=== PATIENT | female | born 1995 | race Caucasian/White ===

== ENCOUNTER 2019-01-07 00:36 | Inpatient (IN) | payer BC ==
[2019-01-07 01:01] VITALS: BMI 35.9
[2019-01-07] MEDS ORDERED: hydrALAZINE 20 MG/ML VIAL SLOW IVP PRN ×2 (01:41→23:34)
[2019-01-07] MEDS ORDERED: Promethazine HCl 25 MG/ML VIAL IM PRN ×3 (01:41→21:11)
[2019-01-07] MEDS ORDERED: Ondansetron PF 4 MG/2 ML Vial IVP PRN ×2 (01:41→14:18)
[2019-01-07] MEDS ORDERED: NS / Oxytocin 40 units/1000ml 1,000 ML IV PRN (01:41)
[2019-01-07] MEDS ORDERED: Lidocaine 1% (PF) 30 ML VIAL SC PRN (01:41)
[2019-01-07] MEDS ORDERED: Lactated Ringer's 1,000 ML IV SCH (01:45)
[2019-01-07 02:20] LABS: Hemoglobin 11.1 g/dL (12.0-16.0); Mean Corpuscular HGB CONC 33.8 g/dL (32.0-36.0); Mean Corpuscular Hemoglobin 28.7 pg (27.0-31.0); Mean Platelet Volume 8.4 fL (7.4-10.4); Platelet Count 210 thou/uL (130-400); RBC Distribution Width 13.1 % (11.5-14.5); Red Blood Cell (RBC) Count 3.88 mill/uL (4.20-5.40); White Blood Cell (WBC) Count 9.7 thou/uL (4.8-10.8)
[2019-01-07 02:58] LABS: HBSAg Index 0.25 S/CO (0-0.99); Hep B Surf Ag Non-Reactive S/CO (NonReactive)
[2019-01-07 04:44] LABS: Syphilis Antibody Nonreactive (Nonreactive); Syphilis Antibody Index 0.03 S/CO (<1.00 Non-Reactive)
[2019-01-07] MEDS: Lactated Ringer's 1,000 ML IV SCH ×4 (06:59→16:41)
[2019-01-07] MEDS ORDERED: NS w/ Oxytocin 10 units 500 ML ONE (10:49)
--- NOTE | 2019-01-07 10:52 | PDOC.EVN ---
Event Note - Event Note Event Note: I came to the bedside to discuss the options for care. Pt presented with SROM at 0050 this AM. Currently only with sporadic and painless contractions. FHT category I. We discussed at length the risks of pitocin v. waiting for spontaneous labor and the risk of infection with continued waiting. Reviewed her op note from her first C/S and discussed with Dr. Zelaya as well. Indication last time was cephalopelvic disproportion but baby was OP and bigger than this one. EFW last week was [id number] on U/S. I advised that given the long time since her rupture and the increasing risk of infection I would recommend IUPC and careful pitocin augmentation. After much discussion she and her are agreeable to that plan. IUPC placed without difficulty. SVE /-2.
[2019-01-07] MEDS ORDERED: Fentanyl 4 mcg/Bup 0.1% Cadd 100 ML ONE (13:33)
[2019-01-07] MEDS ORDERED: Ondansetron PF 4 MG/2 ML Vial ONE ×2 (13:51→20:44)
[2019-01-07] MEDS ORDERED: Ketorolac Tromethamine 30 MG/ML VIAL ONE ×2 (13:51→20:57)
[2019-01-07] MEDS ORDERED: Lidocaine 2% PF 5 ML VIAL ONE (13:51)
[2019-01-07] MEDS ORDERED: Lactated Ringer's 500 ML IV PRN (14:18)
[2019-01-07] MEDS ORDERED: Naloxone HCl 0.4 mg/ml Vial IVP PRN ×4 (14:18→21:11)
[2019-01-07] MEDS ORDERED: Acetaminophen 325 MG TAB PO PRN ×2 (14:18→23:34)
[2019-01-07] MEDS ORDERED: ePHEDrine/0.9% NaCl/PF SYRINGE 50 mg/10 ml SLOW IVP PRN (14:18)
[2019-01-07] MEDS ORDERED: diphenhydrAMINE 50 MG/ML VIAL IVP PRN ×2 (14:18→21:11)
[2019-01-07] MEDS ORDERED: Fentanyl 4 mcg/Bupivacaine 0.1% Cassette 100 ML EPIDURAL SCH (14:30)
[2019-01-07] MEDS ORDERED: Communication Order-Pharmacy FS SCH ×2 (14:30→21:15)
[2019-01-07] MEDS ORDERED: Bicitra 30 ML UDCUP ONE (20:32)
--- NOTE | 2019-01-07 20:39 | PDOC.EVN ---
Event Note - Event Note Event Note: Patient has been having recurrent deep variable decelerations off and on all day. Resolve with position changes but now more persistent, every contraction, as low as 60-70. Resolve quickly with moderate variability between contractions. SVE 6/-2. Very little descent - remains above the pelvis. Discussed with the patient and Dr. cordero and we all agree on repeat C/S at this time. Anesthesia notified. Proceed with repeat C/S.
[2019-01-07] MEDS ORDERED: Lidocaine 2% 10 ML INJ ONE ×2 (20:44→21:03)
[2019-01-07] MEDS ORDERED: CEFAZOLIN 2 GM in Premix Bag 1 BAG IVPB SCH (20:45)
[2019-01-07] MEDS ORDERED: Azithromycin 500 MG in Sodium Chloride 0.9% 250 ML 250 ML IVPB SCH (20:45)
[2019-01-07] MEDS ORDERED: Clindamycin/D5W 900 mg/50 ml Premix Bag ONE (20:46)
[2019-01-07] MEDS ORDERED: MORPHINE 5 MG/10 ML PF VIAL ONE (20:57)
[2019-01-07] MEDS ORDERED: Oxytocin 10 UNITS/ML VIAL ONE ×2 (20:57→21:37)
[2019-01-07] MEDS ORDERED: Clindamycin/D5W 900 MG in Premix Bag 1 BAG IVPB SCH (21:00)
[2019-01-07] MEDS ORDERED: Bupivacaine PF 0.5% 30 ML VIAL ONE (21:03)
[2019-01-07] MEDS ORDERED: Promethazine HCl 25 MG SUPP PR PRN (21:11)
[2019-01-07] MEDS ORDERED: Meperidine HCl/PF 25 MG/ML VIAL SLOW IVP PRN (21:11)
[2019-01-07] MEDS ORDERED: Ketorolac Tromethamine 30 MG/ML VIAL IVP PRN (21:11)
[2019-01-07] MEDS ORDERED: L&D-Morphine 4 MG/ML VIAL SLOW IVP PRN (21:11)
[2019-01-07] MEDS ORDERED: Naloxone HCl 0.4 mg/ml Vial IV PRN (21:11)
[2019-01-07] MEDS ORDERED: HYDROmorphone 2 MG/ML VIAL SLOW IVP PRN (21:11)
[2019-01-07] MEDS ORDERED: Ketorolac Tromethamine 30 MG/ML VIAL IVP SCH (21:15)
--- NOTE | 2019-01-07 23:07 | OP ---
DATE OF PROCEDURE: 01/07/2019 PROCEDURE PERFORMED: Repeat low segment transverse section via Pfannenstiel incision. ONCOLOGY ACCOUNT SPECIALIST SURGEON: Dixie Campbell MD ANESTHESIA: Epidural. ESTIMATED BLOOD LOSS: 600 mL. QUANTITATIVE BLOOD LOSS: Pending. COMPLICATIONS: None. PROPHYLAXIS: 1. Clindamycin 900 mg IV x1. 2. Azithromycin 500 mg x1. FINDINGS: 1. Viable female infant, found in the direct occiput posterior position with weight 7 pounds 15 ounces. Apgars 9 and 9. 2. Multiple wraps of cord around the neck and body. 3. Normal uterus, tubes, and ovaries bilaterally. BRIEF PATIENT DESCRIPTION: Ms. Hoover is a 23-year-old white G2, P1 with a previous history of section for failure to progress. She had been admitted by Dr. Campbell with rupture of membranes about midnight. Pitocin was started earlier in the day. She progressed slowly up to approximately 5-6 cm and then made no further progress. She began to have persistent deep variables, and decision was made to proceed with delivery. The risks, benefits, and alternatives to the procedure were discussed with her in detail and she wished to proceed. Consent was on the chart. TECHNIQUE IN DETAIL: After good epidural anesthesia was achieved, the patient was prepped and draped in usual sterile fashion in the supine position with leftward tilt. A transverse incision was made two fingerbreadths above the symphysis pubis through a pre-existing abdominal scar. The abdomen was entered in layers. The uterus was identified, and a bladder flap was created in the perineum. A transverse incision was made across the lower uterine segment and was extended bluntly with the fingers. The fetus was found in the occiput posterior presentation and head was delivered. The remainder of the baby was then delivered by fundal pressure. There were multiple wraps of cord around the neck and torso. The cord was clamped and cut, and the baby was taken to the waiting team. Cord blood was then obtained. The placenta was then manually removed. The inside of the uterus was curetted with a dry lap to remove all remaining placental fragments. The uterine incision was closed using a running locking suture of Monocryl. Interrupted chromic suture was placed for complete hemostasis. The uterus was replaced in the abdominal cavity and the incision was again reviewed and was deemed hemostatic. The Aleksandar retractor was then removed and the peritoneum was closed using a 2-0 Monocryl suture. The rectus muscles were made dry and then the fascia was closed using 2 sutures of PDS, brought laterally to the midline. The subcutaneous tissue was thoroughly irrigated and made dry using Bovie coagulation technique. The subcutaneous tissue was reapproximated using plain gut suture. The skin was closed with metal dilcia. Sponge, lap, and needle counts were correct. The patient tolerated the procedure well and was taken to recovery room in good condition. Job ID: [id number]
[2019-01-07] MEDS ORDERED: diphenhydrAMINE 25 MG CAP PO PRN (23:34)
[2019-01-07] MEDS ORDERED: Lanolin Ointment 7 GM TUBE TOP PRN (23:34)
[2019-01-07] MEDS ORDERED: Simethicone Chewable 80 MG TAB PO PRN (23:34)
[2019-01-07] MEDS ORDERED: Bisacodyl 10 MG SUPP PR PRN (23:34)
[2019-01-07] MEDS ORDERED: Docusate Calcium (SURFAK) 240 MG CAP PO SCH (23:45)
[2019-01-08] MEDS ORDERED: Ibuprofen 800 MG TAB PO SCH (01:00)
[2019-01-08] MEDS: Lactated Ringer's 1,000 ML IV SCH (01:20)
[2019-01-08 05:57] LABS: Hemoglobin 8.8 g/dL (12.0-16.0); Mean Platelet Volume 8.3 fL (7.4-10.4); Platelet Count 142 thou/uL (130-400); RBC Distribution Width 13.2 % (11.5-14.5); Red Blood Cell (RBC) Count 3.13 mill/uL (4.20-5.40); White Blood Cell (WBC) Count 11.5 thou/uL (4.8-10.8)
--- NOTE | 2019-01-08 07:29 | PDOC.EVN ---
Event Note - Event Note Event Note: Resting comfortably. No c/o. VSS AF Dressing dry and intact. A/P: Stable postop. Dc deras today. Advance diet. Ambulate.
[2019-01-08] MEDS: Docusate Calcium (SURFAK) 240 MG CAP PO SCH ×2 (11:22→21:39)
--- NOTE | 2019-01-08 11:32 | PDOC.PP ---
Post Progress Note Post Day #: 1 Subjective: Doing well, no complaints, not yet ambulating - will try this afternoon. PO intake tolerated: yes Flatus: yes Ambulation: yes Vital Signs (12 hours) Temp Pulse Resp BP Pulse Ox 01/08/19 07:45 98.5 F 84 16 110/57 L 97 01/08/19 03:05 98.2 F 89 18 112/61 01/08/19 01:16 98.8 F 74 18 106/55 L 96 01/07/19 23:58 98.9 F 74 18 106/55 L 96 Weight Weight 184 lb - Physical Examination General: NAD Cardiovascular: no m/r/g, RRR Respiratory: clear to auscultation bilaterally, non-labored breathing Abdominal: + bowel sounds, lochia, no distention, appropriately TTP Skin: CS incision dry & intact Neurological: no gross focal deficits Result Diagrams: 01/08/19 05:44 Additional Labs: Post Labs Blood Type O POSITIVE 01/07/19 02:30 Hep Bs Antigen Non-Reactive S/CO (NonReactive) 01/07/19 01:48 (1) S/P repeat low transverse Code(s): Z98.891 - HISTORY OF UTERINE SCAR FROM PREVIOUS SURGERY Status: Acute - Assessment/Plan Routine Post-op care Ambulate D/C Judge Shower and D/C wound dressing
[2019-01-08] MEDS: HYDROcodone/Acetaminophen 5/325 mg Tablet PO PRN ×2 (13:06→22:58)
[2019-01-08] MEDS: Ibuprofen 800 MG TAB PO SCH ×2 (14:59→21:39)
[2019-01-09] MEDS: Ibuprofen 800 MG TAB PO SCH ×3 (06:37→21:38)
[2019-01-09] MEDS: Docusate Calcium (SURFAK) 240 MG CAP PO SCH ×2 (07:40→21:38)
--- NOTE | 2019-01-09 07:53 | PDOC.PP ---
Post Progress Note Post Day #: 2 Subjective: Doing well. going better today. Pain controlled. PO intake tolerated: yes Flatus: yes Ambulation: yes Vital Signs (12 hours) Temp Pulse Resp BP Pulse Ox 01/09/19 00:15 98.9 F 94 18 105/57 L 01/08/19 19:55 98.3 F 98 18 105/58 L 97 Weight Weight 184 lb - Physical Examination General: NAD Cardiovascular: no m/r/g, RRR Respiratory: clear to auscultation bilaterally, non-labored breathing Abdominal: + bowel sounds, lochia, no distention, appropriately TTP Skin: CS incision dry & intact Neurological: no gross focal deficits Result Diagrams: 01/08/19 05:44 Additional Labs: Post Labs Blood Type O POSITIVE 01/07/19 02:30 Hep Bs Antigen Non-Reactive S/CO (NonReactive) 01/07/19 01:48 (1) S/P repeat low transverse Code(s): Z98.891 - HISTORY OF UTERINE SCAR FROM PREVIOUS SURGERY Status: Acute - Assessment/Plan Routine post-op care D/C tomorrow Will D/C dilcia prior to D/C from hospital F/U in 2 weeks after D/C
[2019-01-09] MEDS: HYDROcodone/Acetaminophen 5/325 mg Tablet PO PRN ×2 (10:59→20:49)
[2019-01-10] MEDS: HYDROcodone/Acetaminophen 5/325 mg Tablet PO PRN (00:57)
[2019-01-10] MEDS: Ibuprofen 800 MG TAB PO SCH (05:15)
--- NOTE | 2019-01-10 07:49 | PDOC.PP ---
Post Progress Note Post Day #: 3 Subjective: Doing well, well, pain controlled, showered again and feeling better PO intake tolerated: yes Flatus: yes Ambulation: yes Vital Signs (12 hours) Temp Pulse Resp BP Pulse Ox 01/10/19 00:30 98.5 F 84 18 112/66 01/09/19 20:32 98.3 F 99 20 113/57 L 96 Weight Weight 184 lb - Physical Examination General: NAD Cardiovascular: no m/r/g, RRR Respiratory: clear to auscultation bilaterally, non-labored breathing Abdominal: + bowel sounds, lochia, no distention, appropriately TTP Skin: CS incision dry & intact Neurological: no gross focal deficits Psychiatric: A&Ox3 Result Diagrams: 01/08/19 05:44 Additional Labs: Post Labs Blood Type O POSITIVE 01/07/19 02:30 Hep Bs Antigen Non-Reactive S/CO (NonReactive) 01/07/19 01:48 (1) S/P repeat low transverse Code(s): Z98.891 - HISTORY OF UTERINE SCAR FROM PREVIOUS SURGERY Status: Acute - Assessment/Plan Routine post-op care D/C dilcia D/C home F/u in 2 weeks
[2019-01-10 08:09] VITALS: BP 103/67; TEMP 98.1
[2019-01-10] MEDS: Docusate Calcium (SURFAK) 240 MG CAP PO SCH (09:34)
== END 2019-01-10 10:30 | disposition home or self-care (01) | DRG 788 ==
LOC: L&D/OP 00:36 → L&D 01:13 → 3SW 01-08
PROVIDERS: ADMIT Family Medicine; ATTEND Family Medicine
PROC: 10D00Z1 Extraction of Products of Conception, Low, Open Approach (ICD-10-PCS; principal; 2019-01-08)
PROC: 10H07YZ Insertion of Other Device into Products of Conception, Via Natural or Artificial Opening (ICD-10-PCS; 2019-01-08)
PROC: 4A1H7CZ Monitoring of Products of Conception, Cardiac Rate, Via Natural or Artificial Opening (ICD-10-PCS; 2019-01-08)
DX: O34.211 Maternal care for low transverse scar from previous cesarean delivery (principal); Z37.0 Single live birth; Z3A.39 39 weeks gestation of pregnancy; Z88.0 Allergy status to penicillin; Z88.2 Allergy status to sulfonamides
CPT/HCPCS: 36415; 51702; 76815; 85027; 86780; 86850; 86900; 86901; 87340; 99285; J0131; J0690; J1885; J2001; J2274; J2405; J2590; J3490; S0020

== ENCOUNTER 2020-08-23 02:24 | Inpatient (IN) | payer BC, OTHER ==
[2020-08-23 02:46] VITALS: BMI 34.5
[2020-08-23] MEDS ORDERED: Azithromycin 500 MG VIAL ONE (02:53)
[2020-08-23] MEDS ORDERED: Clindamycin/D5W 900 mg/50 ml Premix Bag ONE (02:54)
[2020-08-23] MEDS ORDERED: Ondansetron PF 4 MG/2 ML Vial IVP PRN ×3 (02:57→04:55)
[2020-08-23] MEDS ORDERED: Famotidine/PF 20 mg/2ml Vial SLOW IVP PRN (02:57)
[2020-08-23] MEDS ORDERED: Bicitra 30 ML UDCUP PO PRN (02:57)
[2020-08-23] MEDS ORDERED: hydrALAZINE 20 MG/ML VIAL SLOW IVP PRN ×2 (02:57→04:55)
[2020-08-23] MEDS ORDERED: Promethazine HCl 25 MG/ML VIAL IM PRN ×2 (02:57→04:21)
[2020-08-23] MEDS ORDERED: Lactated Ringer's 1,000 ML IV SCH (03:00)
[2020-08-23] MEDS ORDERED: Azithromycin 500 MG in Sodium Chloride 0.9% 250 ML 250 ML IVPB SCH (03:00)
[2020-08-23] MEDS ORDERED: Clindamycin/D5W 900 MG in Premix Bag 1 BAG IVPB SCH (03:00)
--- NOTE | 2020-08-23 03:11 | PDOC.FPROB ---
FMR OB H&P: HPI - History of Present Illness Chief Complaint: ctx Indentification: 25yo @ 40.5wk History of Present Illness: 25yo @ 40.5wk with h/o rLTCS x2 presents from birthing center in [place] for ctx after SROM. Patient initially presented for SROM and TOLAC at 1900 on 08/22/20, was 1cm and having significant pain with contractions, decided to transfer to [place] for rLTCS. Endorses ctx q 5 min, painful. Denies vaginal bleeding. Endorses movement. Denies MANRIQUEZ, vision changes, CP, SOB, n/v, fever/chills. Primary Care Physician: [facility] in [place] FMR OB H&P: Current - Care : 3 Para: 2001 Gestational age: 40.5 Due date: 08/18/20 Dating Criteria: LMP - OB Labs Blood type: O RH: positive Antibody Screen: negative HIV: negative RPR: negative HepBsAg: negative Rubella: immune GBS: positive H&H: 12.6 - First Trimester Ultrasound First trimester: posterior placenta FMR OB H&P: History - Past Medical History PMH: Denies - OB History OB History: prior LTCS x2, no complications. - BEAD MAKER History BEAD MAKER History: None - Surgical History Sx History: prior c/s x2, ear tubes - Social History Social History: . Denies EtOH, Tob, Illicits - Family History Family History: Parents with HTN FMR OB H&P: Medications - Current Home Medications: Medication Instructions Recorded Confirmed Type Vit,Calc76/Iron/Folic 1 tablet PO DAILY-AC 01/07/19 01/07/19 History [Pnv 29-1 Tablet] Allergies/Adverse Reactions: Allergies Allergy/AdvReac Type Severity Reaction Status Date / Time Penicillins Allergy Rash Verified 08/23/20 02:47 Sulfa (Sulfonamide Allergy Nausea Verified 08/23/20 02:47 Antibiotics) FMR OB H&P: ROS - Review of Systems General: denies: fever/chills, weight/appetite/sleep changes, night sweats, fatigue Eyes: denies: vision changes, double vision ENT: denies: nasal congestion, rhinorrhea Cardiovascular: denies: chest pain, palpitation, edema Respiratory: denies: cough, congestion, shortness of breath Gastrointestinal: denies: abdominal pain, nausea, vomiting Genitourinary (Female): reports: contractions. denies: dysuria, vaginal discharge, vaginal pain Neurologic: denies: numbness Integumentary: denies: rash Hematologic/Lymphatic: denies: prolonged or excessive bleeding FMR OB H&P: Vital Signs - Maternal Vital signs: T 98.5, BP 139/84, RR 16, HR 100 - Heart Tones Baseline: 130 Variability: moderate Acceleration: present Deceleration: absent Category: category 1 [place] contractions every: 5-6min FMR OB H&P: Physical Exam - Physical Exam General: NAD, awake, alert and oriented, other (uncomfortable with ctx) HEENT: EOMI, MMM, conjunctiva clear Neck: supple, trachea midline Heart: RRR, normal S1/S2, no murmurs/rubs/gallops, no edema General: CTAB, no respiratory distress, good air movement, no rales/rhonchi, no wheezing Abdomen: soft, gravid, non-tender, bowel sound present Musculoskeletal: FROM in all four extremities Neurological: no focal deficit Skin: no rash Psychiatric: intact recent and remote memory, good judgement and insight, normal mood and affect - Pelvic Exam SVE: FMR OB H&P: A/P - Problem List (1) Rupture of membranes Current Visit: Yes Status: Acute Code(s): [id number] - (2) Active labor at term Current Visit: Yes Status: Acute Code(s): [id number] - (3) S/P repeat low transverse Current Visit: No Status: Acute Code(s): Z98.891 - HISTORY OF UTERINE SCAR FROM PREVIOUS SURGERY Disposition: 25yo @ 40.5wk with h/o rLTCS x2 [facility] after SROM. #Term, SIUP, labor, prior c/s x2 - SROM at approximately 1900 - Initially presented to [facility] for T[facility]AC after SROM, then requested transfer to [place] for rLTCS - Cat 1 FHT - at presentation - GBS positive with PNC allergy - Given Clinda and Azithro - Type and cross 2u - Anesthesia consulted - R/B/A explained and patient consents to proceed with rLTCS - Posterior placenta PCP: [facility] in [place] VTE: SCDs IVF: LR @ 125cc/hr Diet: NPO Dispo: Admit for rLTCS in setting of prior c/s x2 with SROM and in labor. Discussion: Date/Time: 08/23/206 This H&P was discussed with Dr. Valdez who agrees with the above documentation and plan. OBGYN: Patient seen by me at bedside. Exasm was 5cm per RN. patient desires repeat CS VICKEY. Anesthesia aware and we are getting OR ready now.
[2020-08-23 03:12] LABS: Hemoglobin 9.8 g/dL (12.0-16.0); Mean Corpuscular HGB CONC 33.4 g/dL (32.0-36.0); Mean Corpuscular Hemoglobin 25.9 pg (27.0-31.0); Mean Corpuscular Volume 77.6 fL (78.0-98.0); Mean Platelet Volume 8.7 fL (7.4-10.4); Platelet Count 181 thou/uL (130-400); Red Blood Cell (RBC) Count 3.78 mill/uL (4.20-5.40); White Blood Cell (WBC) Count 15.9 thou/uL (4.8-10.8)
[2020-08-23] MEDS ORDERED: Butorphanol Tartrate 1 MG/ML VIAL SLOW IVP SCH (03:15)
[2020-08-23] MEDS ORDERED: Butorphanol Tartrate 1 MG/ML VIAL ONE (03:15)
[2020-08-23] MEDS ORDERED: Morphine PF 10 MG/10 ML VIAL ONE (03:32)
[2020-08-23] MEDS ORDERED: Oxytocin 10 UNITS/ML VIAL ONE (03:32)
[2020-08-23] MEDS ORDERED: Ondansetron PF 4 MG/2 ML Vial ONE (03:32)
[2020-08-23] MEDS ORDERED: Fentanyl 100 MCG/2 ML VIAL ONE (03:32)
[2020-08-23] MEDS ORDERED: PHENYLEPHRINE-NS 100 MCG/ML 10 ML SYRINGE ONE ×2 (03:32→04:33)
[2020-08-23] MEDS ORDERED: Ketorolac Tromethamine 30 MG/ML VIAL ONE (03:32)
[2020-08-23] MEDS ORDERED: Dexamethasone 4 mg/ml Vial ONE (03:32)
[2020-08-23] MEDS ORDERED: Carboprost 250 MCG/ML AMP ONE (03:52)
[2020-08-23 03:53] LABS: Hep B Surf Ag Non-Reactive S/CO (NonReactive)
--- NOTE | 2020-08-23 04:01 | HP ---
TIME: Now 0305. LOCATION: Labor and Delivery. CHIEF COMPLAINT: Patient transferred here from [place] [facility] with a history of previous C-sections x2 with labor. HISTORY OF PRESENT ILLNESS: This is a 25-year-old, G3, P2, who is at 40 weeks and 5 days, who arrived here from [place] after leaving her care with her roadway designer. She was originally with the roadway designer for labor, but decided to come here as she refused any further checks there. She has a history of a previous , which was here at [facility]. That was uncomplicated. REVIEW OF SYSTEMS: GENERAL: No sick contacts. No fever. No chills. PULMONARY: No shortness of breath. CARDIOVASCULAR: No chest pain. NEUROLOGICAL: No headache or visual changes. EXTREMITIES: No unusual calf pain or leg swelling. PAST MEDICAL HISTORY: Otherwise negative. MEDICATIONS: vitamins. PAST SURGICAL HISTORY: Includes a x2. ALLERGIES: PENICILLIN. OB HISTORY: She is a G3, P2 with 2 previous C-sections, now at 40 weeks and 5 days. SOCIAL HISTORY: Negative for alcohol, tobacco, and drug use. PHYSICAL EXAMINATION: VITAL SIGNS: Stable. She is afebrile. Vital signs are 139/84, pulse of 100, respirations are 18, temperature is 98.5. GENERAL: She is in no acute distress, but apparently she is having contraction discomfort. ABDOMEN: Gravid and size consistent with dates. Cervical exam is pending as she just arrived. (We do not know what she was at the other location because she was refusing exams). Monitoring: heart tones were reviewed by me and I found the heart tones was at baseline heart rate of around 130 to 140s. There is moderate variability. There are some variable decelerations and she is alexandrea about every 3 minutes. ASSESSMENT: This is a G3, P2, previous x2 at 40 weeks and 5 days, who was in labor with a [place] roadway designer and arrived here. She declined exams over there, so we are not sure what she is here. She arrived here for further management and repeat . PLAN: 1. Admission to Labor and Delivery. 2. Type and cross for 2 units. 3. I am not sure what her exam is, but this is being evaluated now. 4. Although the ACOG does allow previous x2 history to have a TOLAC in certain situations, I am not comfortable with the TOLAC and recommend for her. 5. Informed consent being done as we speak. 6. Ethan Villar MD, who is our resident, was first to evaluate the patient and is assisting me while I do this dictation. 7. I will explain to her the risks and benefits of repeat versus TOLAC at this time. Job ID: [id number] MTDD
[2020-08-23] MEDS ORDERED: Meperidine HCl/PF 25 MG/ML VIAL SLOW IVP PRN (04:21)
[2020-08-23] MEDS ORDERED: Naloxone HCl 0.4 mg/ml Vial IV PRN (04:21)
[2020-08-23] MEDS ORDERED: Naloxone HCl 0.4 mg/ml Vial IVP PRN ×2 (04:21)
[2020-08-23] MEDS ORDERED: L&D-Morphine 4 MG/ML VIAL SLOW IVP PRN (04:21)
[2020-08-23] MEDS ORDERED: HYDROmorphone 2 MG/ML VIAL SLOW IVP PRN (04:21)
[2020-08-23] MEDS ORDERED: diphenhydrAMINE 50 MG/ML VIAL IVP PRN (04:21)
[2020-08-23] MEDS ORDERED: Promethazine HCl 25 MG SUPP PR PRN (04:21)
[2020-08-23] MEDS ORDERED: Ondansetron HCl/PF 4 MG/2 ML Vial IVP PRN (04:21)
[2020-08-23 04:28] LABS: Actual Bicarbonate (HCO3v) 24 mEq/L (22-28); Base Excess -3.7 mEq/L (-2.0 to +3.0); pH (Cord, venous) 7.28 (7.32-7.43)
[2020-08-23] MEDS ORDERED: Communication Order-Pharmacy FS SCH (04:30)
--- NOTE | 2020-08-23 04:42 | PDOC.BPN ---
- Brief Progress Note OP Note Brief Details: Repeat CS (LTCS via pfannestiel)...no issues identified. EBL less than 500ml (QBL pending). Baby vigorous male with apgars 8/9. Dictated.
[2020-08-23] MEDS ORDERED: diphenhydrAMINE 25 MG CAP PO PRN (04:55)
[2020-08-23] MEDS ORDERED: Lanolin Ointment 7 GM TUBE TOP PRN (04:55)
[2020-08-23] MEDS ORDERED: Acetaminophen 325 MG TAB PO PRN (04:55)
--- NOTE | 2020-08-23 05:03 | OP ---
DATE OF PROCEDURE: 08/23/2020 LOCATION: Labor and Delivery. PREOPERATIVE DIAGNOSES: 1. Prior x2. 2. 40 weeks and 5 days. 3. Patient was transferred from [place] from a researcher provider. 4. 5 cm dilation. 5. Desires repeat section. POSTOPERATIVE DIAGNOSES: 1. Prior x2. 2. 40 weeks and 5 days. 3. Patient was transferred from [place] from a researcher provider. 4. 5 cm dilation. 5. Desires repeat section. 6. Status post repeat low transverse . PROCEDURE: Repeat low transverse section via Pfannenstiel skin incision. SHORE MAN: Ethan Villar. ANESTHESIA: Spinal anesthetic block. ANTIBIOTICS: Ancef and clindamycin. ALLERGIES: STATED ALLERGY TO PENICILLIN. FINDINGS: 1. There is a male in cephalic presentation. 2. Vigorous . 3. No complications with delivery. 4. Apgars 8 and 9. 5. Three-vessel cord. 6. Hemostasis postprocedure. 7. NICU team present for delivery. 8. EBL is at max 500 mL. 9. Urine output is clear urine by Judge about 300 mL by visual inspection, but this is not formal. 10. IV fluids about 1500 mL crystalloid. 11. Complications are none. 12. Counts are correct. 13. Laboratory specimen sent is an umbilical arterial gas due to the 40 weeks and 5 days and TOLAC history. INDICATIONS FOR : This patient was a transfer from [place], who decided for a repeat and drove here from [place] after being with the researcher for the initial part of labor. She was 5 cm when she arrived. We proceeded to her quickly after her arrival. PROCEDURE NARRATIVE: After proper informed consent was explained to the patient, she was taken to the Labor and Delivery operating room, where she was prepped and draped in the usual sterile fashion. A spinal anesthetic block was tested in the usual protocol. A low transverse skin incision was made in the area of the old scar. There was an old scar necessary for removal. Bovie cautery on cut mode was used to dissect the subcutaneous tissue down to the level of the fascia. Fascia was identified, cleaned off any overlying fat, and entered with Starks scissors in a transverse fashion. Care was taken to avoid underlying structures. Underlying peritoneum was then dissected free and the peritoneal cavity was entered by blunt dissection. The rectus muscles were already sufficiently from the midline. After confirming absence of severe adhesions, an Aleksandar O retractor was placed into the wound for retraction. A low transverse hysterotomy was then performed with a scalpel without complication. The baby's head was delivered. Shoulders and body were then delivered without complication. Baby was vigorous. Cord was doubly clamped, transected, and then the placenta was gently massaged out of the uterine cavity and it was intact. The uterus was then repaired in situ. #1 Monocryl was used in a two-layer closure to close the hysterotomy. As soon as the baby was delivered and the hysterotomy was being closed, Hemabate 250 mcg were given IM x1, just due to her initial low hematocrit value of 9.8. Copious irrigation was then performed and after confirming that all counts were correct, the rectus muscles were reapproximated in the midline using a loose 2-0 chromic running nonlocking closure. Fascia was closed with 0 PDS x2 in the usual running nonlocking fashion. Subcutaneous tissue was copiously irrigated and then the skin was closed with 3-0 Monocryl in the usual subcuticular stitch and Dermabond liquid skin adhesive was placed over the incision. No complications were noted. She will go to recovery for routine /postop care. Job ID: [id number]
[2020-08-23 05:05] LABS: Syphilis Antibody Nonreactive (Nonreactive); Syphilis Antibody Index 0.03 S/CO (<1.00 Non-Reactive)
--- NOTE | 2020-08-23 05:05 | PDOC.BPN ---
- Brief Progress Note Baby note: Very superficial scalpel eric on upper left baby shoulder noted but not requiring any repair. I discussed this with the patient at bedside and Dr Villar with me.
[2020-08-23] MEDS ORDERED: Meperidine HCl/PF 25 MG/ML VIAL ONE (06:45)
[2020-08-23] MEDS ORDERED: FLU VACC QS2020-21(6MOS UP)/PF 60 MCG/0.5 ML SYRINGE IM ONE (09:00)
[2020-08-23] MEDS ORDERED: Adacel (T-DAP) 0.5 ML SYRINGE IM ONE (09:00)
[2020-08-23] MEDS: Ferrous Sulfate 325 MG TAB PO SCH (09:20)
[2020-08-23] MEDS: Prenatal Vitamin 1 TAB PO SCH (09:20)
[2020-08-23] MEDS: Ketorolac Tromethamine 30 MG/ML VIAL IVP SCH ×3 (09:48→22:20)
[2020-08-23] MEDS ORDERED: Morphine 2 MG/ML VIAL SLOW IVP PRN (12:41)
[2020-08-23] MEDS ORDERED: HYDROcodone/Acetaminophen 5/325 mg Tablet PO PRN (16:30)
[2020-08-23] MEDS: HYDROcodone/Acetaminophen 5/325 mg Tablet PO PRN (18:36)
--- NOTE | 2020-08-24 04:00 | PDOC.PP ---
Post Progress Note Post Day #: 1 Subjective: Feeling well. Pain well controlled. Urinating well and walking. PO intake tolerated: yes Flatus: yes Ambulation: yes Vital Signs (12 hours) Temp Pulse Resp BP Pulse Ox 08/23/20 23:50 97.6 F 88 17 131/60 08/23/20 20:35 98.4 F 83 15 109/53 L 08/23/20 17:30 98.2 F 78 18 105/52 L 95 Weight Weight 83.007 kg - Physical Examination General: NAD Cardiovascular: no m/r/g, RRR Respiratory: clear to auscultation bilaterally, non-labored breathing Abdominal: lochia, no distention, appropriately TTP Fundus firm & at: level of umbilicus Skin: CS incision dry & intact, no rash Neurological: no gross focal deficits Psychiatric: A&Ox3, normal affect Result Diagrams: 08/23/20 03:07 Additional Labs: Post Labs Hep Bs Antigen Non-Reactive S/CO (NonReactive) 08/23/20 03:07 Blood Type O POSITIVE 08/23/20 03:07 - Assessment/Plan 25 yo G3 now [id number] delivered at 40.5 wga POD#1 s/p RLTCS - postop hemoglobin pending - hx of iron deficiency anemia, give iron as indicated - meeting milestones Outpatient follow up: pt has PCP in [place]. She will call tomorrow in AM and see if PCP comfortable with mgmt. Otherwise, may see [facility] for care at 2 and 6 weeks . Dispo: monitor today. inpatient, community engagement coordinatorMaryan Acevedo MD PGY2
[2020-08-24] MEDS: Ibuprofen 800 MG TAB PO SCH ×3 (05:28→21:37)
[2020-08-24] MEDS: Simethicone Chewable 80 MG TAB PO PRN ×2 (05:33→21:38)
[2020-08-24 06:18] LABS: Hemoglobin 7.3 g/dL (12.0-16.0); Mean Corpuscular HGB CONC 32.5 g/dL (32.0-36.0); Mean Corpuscular Hemoglobin 25.3 pg (27.0-31.0); Mean Corpuscular Volume 77.9 fL (78.0-98.0); Mean Platelet Volume 8.3 fL (7.4-10.4); Platelet Count 144 thou/uL (130-400); RBC Distribution Width 14.1 % (11.5-14.5); White Blood Cell (WBC) Count 13.4 thou/uL (4.8-10.8)
[2020-08-24] MEDS: Prenatal Vitamin 1 TAB PO SCH (08:32)
[2020-08-24] MEDS: Ferrous Sulfate 325 MG TAB PO SCH (08:32)
[2020-08-24] MEDS: HYDROcodone/Acetaminophen 5/325 mg Tablet PO PRN ×2 (15:07→22:21)
[2020-08-25] MEDS: Ibuprofen 800 MG TAB PO SCH (05:31)
[2020-08-25 06:03] LABS: Hemoglobin 8.2 g/dL (12.0-16.0); Mean Corpuscular HGB CONC 31.6 g/dL (32.0-36.0); Mean Corpuscular Hemoglobin 24.8 pg (27.0-31.0); Mean Corpuscular Volume 78.4 fL (78.0-98.0); Platelet Count 180 thou/uL (130-400); RBC Distribution Width 14.4 % (11.5-14.5); Red Blood Cell (RBC) Count 3.29 mill/uL (4.20-5.40); White Blood Cell (WBC) Count 11.6 thou/uL (4.8-10.8)
--- NOTE | 2020-08-25 07:23 | PDOC.PP ---
Post Progress Note Post Day #: 2 Subjective: Doing very well. Tolerating PO without n/v. Ambulating. Voiding and stooling. Pain well-controlled with prn norco and maye motrin. going well. Denies fever/chills, n/v, MANRIQUEZ, vision changes, SOB, CP. PO intake tolerated: yes Flatus: yes Ambulation: yes Vital Signs (12 hours) Temp Pulse Resp BP Pulse Ox 08/25/20 04:35 98.7 F 108 H 18 117/60 96 08/25/20 00:47 98.7 F 108 H 18 117/60 96 08/24/20 20:25 98.5 F 102 H 18 120/67 102 H Weight Weight 83.007 kg - Physical Examination General: NAD (pleasant, eager for discharge) Cardiovascular: no m/r/g, RRR Respiratory: clear to auscultation bilaterally Abdominal: + bowel sounds, no distention, appropriately TTP Fundus firm & at: below umbilicus Skin: CS incision dry & intact, no rash Neurological: no gross focal deficits Psychiatric: A&Ox3, normal affect Result Diagrams: 08/25/20 05:55 Additional Labs: Post Labs Hep Bs Antigen Non-Reactive S/CO (NonReactive) 08/23/20 03:07 Blood Type O POSITIVE 08/23/20 03:07 (1) Rupture of membranes Code(s): [id number] - Status: Acute (2) Active labor at term Code(s): [id number] - Status: Acute (3) S/P repeat low transverse Code(s): Z98.891 - HISTORY OF UTERINE SCAR FROM PREVIOUS SURGERY Status: Acute - Assessment/Plan 25yo @ 40.5wk with h/o rLTCS x2 presented in labor s/p rLTCS, POD#2 #s/p rLTCS, POD#2 - Initially presented to [facility] [place] for TOLAC after SROM, then requested transfer to [place] for rLTCS - GBS positive with PNC allergy - Given Clinda and Azithro - Tolerated surgery well, routine recovery - post op Hb 8.2 - continue PO iron and will need outpt monitoring - motrin and norco prn pain - discharge today PCP: [facility] Boss in [place] Dispo: S/p rLTCS, POD#2. Routine recovery. Discharge today with 2 week f/u.
[2020-08-25 08:14] VITALS: BP 113/55; TEMP 98
--- NOTE | 2020-08-28 03:34 | PQF ---
CLINICAL DOCUMENTATION CLARIFICATION FORM: Dear : Raphael Valdez Date / Time: 08/28/2020333 Please exercise your independent, professional judgment in responding to the clarification form. Clinical indicators are provided on the bottom of this form for your review In your clinical opinion based on clinical findings below, can you please further specify Iron Deficiency Anemia if: Please check appropriate box(es): [ ] Acute blood loss anemia [ ] Acute on chronic blood loss anemia [ ] Chronic blood loss anemia [ ] Anemia related to [ ] Other diagnosis _Anemia of ; postoperative anemia due to blood loss [ ] Unable to determine Physician Signature: Date/Time: For continuity of documentation, please document condition throughout progress notes and discharge summary. Thank You. To be completed by CDI/Coding staff for physician review: Present Clinical Indicators - Signs / Symptoms / Labs Results and Location in Medical Record [x] RBC 3.78, Hgb 9.8, Hct 29.3 Laboratory 08/23 [x] RBC 2.90, Hgb 7.3, Hct 22.6 Laboratory 08/24 [x] RBC 3.29, Hgb 8.2, Hct 25.8 Laboratory 08/25 [x] Hx of iron deficiency anemia HPN p2 08/24 Dr Alvarez [x] EBL less than 500 ml Pn p1 08/23 Dr Valdez Present Risk Factors Results and Location in Medical Record [x] 40 weeks gestation HPN p2 08/24 Dr Alvarez [x] S/p RLTCS HPN p2 08/24 Dr Alvarez Present Treatments Results and Location in Medical Record [x] Ferrous Sulfate 325 mg oral SEP 16 [x] IV Lacted Rinngers 1L SEP 16 [x] Hgb and Hct monitoring Laboratory 08/23-08/25 CDS/Structural Designer Signature: Martha Zaria Olson Phone #: ext [phone] Date/Time: 08/28/20333 This is a permanent part of the Medical Record [facility]
== END 2020-08-25 12:00 | disposition home or self-care (01) | DRG 787 ==
LOC: L&D/OP 02:24 → L&D 02:57 → 3SW 08:23
PROVIDERS: ADMIT Obstetrics & Gynecology; ATTEND Obstetrics & Gynecology
PROC: 10D00Z1 Extraction of Products of Conception, Low, Open Approach (ICD-10-PCS; principal; 2020-08-23)
DX: O34.211 Maternal care for low transverse scar from previous cesarean delivery (principal); D62 Acute posthemorrhagic anemia; Z3A.40 40 weeks gestation of pregnancy; Z37.0 Single live birth; Z88.0 Allergy status to penicillin; Z88.2 Allergy status to sulfonamides; O90.81 Anemia of the puerperium
CPT/HCPCS: 36415; 51702; 82805; 85027; 86780; 86850; 86900; 86901; 87340; J0456; J0595; J1100; J1885; J2175; J2270; J2405; J3010; J3490